=== PATIENT | female | born 1940 | race Caucasian/White ===

== ENCOUNTER 2020-06-07 10:36 | Day surgery (SDC) | payer OTHER ==
[~2020-06-07] VITALS: Ht 154.9 cm; Wt 79.0 kg
[~2020-06-07 10:36] MED LIST: ACET325 PO; AMLO10 PO; ANAS1 PO; ASPI81CH PO; ASPI81EC PO; AVALIDE; Anastrozole1 GM PO; BYSTOLIC; CALCIUM/VIT D PO; FAMC500 PO; FLUSAL2505; FLUT.05NI; HUMALOG; INSLI100I SC; INSULANI; INSULANI SC; INSULANPEN SC; LOSA25 PO; METF500C PO; MONT10T; MYCARDIS; Norvasc PO; OMEP20ER PO; OXYACE5T PO; PRED20 PO; SERT25 PO; SIMV40 PO; SPIRIVA; STOOL SOFTENER PO; STOOL SOFTNER; TAMO20 PO; TELM20 PO; TELM80 PO; TRAM50 PO; TYLENOL PO; ZOLOFT; [UNRECOGNIZED DRUG - OTHER]; [UNRECOGNIZED DRUG - OTHER]; [UNRECOGNIZED DRUG - OTHER] PO
--- NOTE | 2020-06-07 11:40 | NUR ---
06/07/[address] notified of htn, he comes to see the pt and no orders given.
--- NOTE | 2020-06-07 13:54 | NUR ---
06/07/20 Aiden4 Jony Swenson PT RESTING ON RECLINER. PT DENIES ANY PAIN AT THIS TIME. PT TOLERATING SNACKS. BLOOD SUGAR RE-CHECKED AFTER SURGERY PER DR. LAWSON ORDER. BLOOD SUGAR REPORTED TO DR. LAWSON AND NO FURTHER ORDERS GIVEN BY TO TREAT BLOOD SUGAR. DR. CAO WITH PT TO HAVE SNACKS DURING RECOVERY. WILL CONTINUE TO MONITOR. PT.
== END 2020-06-07 14:48 | disposition home or self-care (01) ==
LOC: ORSCSDS 10:36
PROVIDERS: Surgery
PROC: 0HBT0ZZ Excision of Right Breast, Open Approach (ICD-10-PCS; principal; 2020-06-07 12:00)
DX: C50.911 Malignant neoplasm of unspecified site of right female breast (principal); I10 Essential (primary) hypertension; J44.9 Chronic obstructive pulmonary disease, unspecified; Z87.891 Personal history of nicotine dependence; G47.33 Obstructive sleep apnea (adult) (pediatric); E11.9 Type 2 diabetes mellitus without complications; E83.119 Hemochromatosis, unspecified; K21.9 Gastro-esophageal reflux disease without esophagitis; Z79.4 Long term (current) use of insulin; Z79.899 Other long term (current) drug therapy
CPT/HCPCS: 82947; 88307; 88341; 88342; J0690; J1100; J2250; J2370; J2405; J2704; J3010; J7120

== ENCOUNTER 2020-06-26 08:36 | Day surgery (SDC) | payer OTHER ==
[~2020-06-26] VITALS: Ht 152.4 cm; Wt 77.1 kg
[2020-06-26] MEDS ORDERED: BASAGLAR K100 UNIT/1 SC (09:20)
[2020-06-26] MEDS ORDERED: VICTOZA 2-0.6 MG/0.1 SC (09:20)
--- NOTE | 2020-06-26 10:00 | NUR ---
06/26/20 1000 MELECIO MUNIZ PT TO PRE OP. PT'S BP ELEVATED 206/91, 220/[address] MONCADA - ANESTHESIA CONSULTED. ONE TIME ORDER FOR HYDRALAZINE 10MG IV RECEIVED AND GIVEN. REPEAT BP RECORDED OF 190/79, 191/79 WILL CONT TO MONITOR PT. PT REPORTS IT BECOMES ELEVATED WHEN ANXIOUS.
--- NOTE | 2020-06-26 12:45 | NUR ---
06/26/20 1245 Reed Gordon BILATERAL RAQUEL DRAINS PLACED AND SECURED INTO BREAST BINDER. BOTH DRAINS HOLDING SUCTION AND DRAINING PROPERLY WHEN LEAVING OR. DR CALDWELL AWARE.
--- NOTE | 2020-06-26 14:13 | NUR ---
06/26/20 1413 Jony Swenson PT RESTING ON RECLINER, VS TAYOL. PT SMILING. WILL CONTINUE TO MONITOR.
== END 2020-06-26 16:20 | disposition home or self-care (01) ==
LOC: ORSCSDS 08:36
PROVIDERS: Surgery
PROC: 0HTV0ZZ Resection of Bilateral Breast, Open Approach (ICD-10-PCS; principal; 2020-06-26 10:00)
DX: C50.911 Malignant neoplasm of unspecified site of right female breast (principal); Z40.01 Encounter for prophylactic removal of breast; E11.9 Type 2 diabetes mellitus without complications; I10 Essential (primary) hypertension; J44.9 Chronic obstructive pulmonary disease, unspecified; G47.33 Obstructive sleep apnea (adult) (pediatric); Z79.4 Long term (current) use of insulin; Z87.891 Personal history of nicotine dependence; Z79.82 Long term (current) use of aspirin; Z79.899 Other long term (current) drug therapy
CPT/HCPCS: 82947; 88307; 88311; A9270; J0330; J0360; J0690; J2250; J2370; J2405; J2704; J3010

== ENCOUNTER 2021-02-21 14:35 | Observation (INO) | payer OTHER ==
[~2021-02-21] VITALS: Ht 152.4 cm; Wt 80.7 kg
[~2021-02-21 14:35] MED LIST changes: +ANASTROZOLE1 M6 PO; -Anastrozole1 GM PO; +BASAGLAR K100 UNIT/1 SC; +VICTOZA 2-0.6 MG/0.1 SC
[2021-02-21 15:27] LABS: BASOPHILS PERCENT AUTO 1 % (0-2); EOSINOPHILS ABSOLUTE AUTO 0.29 K/mm3 (0.00-0.68); EOSINOPHILS PERCENT AUTO 4 % (0-6); Hematocrit 26.4 % (33.0-51.0); Hemoglobin 8.4 g/dL (11.5-16.0); IMMATURE GRAN ABSOLUTE AUTO 0.03 K/mm3 (0.00-0.10); IMMATURE GRAN PERCENT AUTO 0 % (0-1); LYMPHOCYTES ABSOLUTE AUTO 1.37 K/mm3 (0.84-5.20); LYMPHOCYTES PERCENT AUTO 17 % (21-46); MONOCYTES ABSOLUTE AUTO 0.68 K/mm3 (0.16-1.47); MONOCYTES PERCENT AUTO 8 % (4-13); Mean Corpuscular HGB 29.1 pg (26.0-34.0); Mean Corpuscular HGB Conc 31.8 g/dL (31.5-36.5); Mean Corpuscular Volume 91 fL (80-100); Mean Platelet Volume 10.5 fL (9.1-12.4); NEUTROPHILS ABSOLUTE AUTO 5.64 K/mm3 (1.96-9.15); NEUTROPHILS PERCENT AUTO 70 % (41-73); Platelet Count 157 K/mm3 (150-400); RDW Coefficient Variation 14.2 % (11.7-14.2); RDW Standard Deviation 48.1 fL (35.1-46.3); Red Blood Cell Count 2.89 M/mm3 (3.80-5.20); White Blood Cell Count 8.11 K/mm3 (4.00-11.30)
[2021-02-21 15:43] LABS: Albumin, Blood 3.1 g/dL (3.4-5.0); Albumin/Globulin Ratio 0.8 (0.8-1.8); Bilirubin, Total 0.5 mg/dL (0.1-1.0); Bun/Creatinine Ratio 34.8 (12.0-20.0); Calcium, Blood 9.5 mg/dL (8.5-10.1); Creatinine, Blood 1.12 mg/dL (0.40-1.00); Globulin, Blood 3.7 g/dL (2.2-4.0); Total Protein, Blood 6.8 g/dL (6.4-8.2)
[2021-02-21 17:21] LABS: Source, Urine Clean Catch
[2021-02-21 17:37] LABS: Appearance, Urine Clear (Clear); Bilirubin, Urine Neg (Neg); Blood, Urine Neg (Neg); Color, Urine Yellow (P-Yellow); Glucose Qualitative, Urine 4+ (Neg); Ketones, Urine Neg (Neg); Leukocyte Esterase, Urine 1+ (Neg); Nitrite, Urine Neg (Neg); Protein, Urine 1+ (Neg); Urobilinogen, Urine NORM (Normal)
[2021-02-21 17:53] LABS: Bacteria Few /hpf; Red Blood Cells, Urine 0-2 /hpf (0-2); Squamous Epithelial Cells Few /hpf (Few)
[2021-02-21] MEDS ORDERED: OXYC10TA19 PO (19:29)
[2021-02-21] MEDS ORDERED: METFORMIN HCL500 M3 PO (19:29)
[2021-02-22 00:46] LABS: SARS-Cov-2 (COVID-19) PCR, MMC NEGATIVE (NEGATIVE)
--- NOTE | 2021-02-22 04:50 | NUR ---
SUMMARY PT ARRIVED TO FLOOR IN NO DISTRESS. PT CHEST WOUND DRESSED AND KEPT C/D/I. PT HAS NOTED DECUB ON COCCYX AND MEPILEX PLACED. PT CURRENTLY BEDREST. PT HAS BEEN SLEEPING AND BREATHING EASY. PT GIVEN SEMGLEE ORDERED. CALL LIGHT IN REACH AND BED ALARM ON.
[2021-02-22 04:53] LABS: Hematocrit 22.9 % (33.0-51.0); Hemoglobin 7.4 g/dL (11.5-16.0); Mean Corpuscular HGB 29.5 pg (26.0-34.0); Mean Corpuscular HGB Conc 32.3 g/dL (31.5-36.5); Mean Corpuscular Volume 91 fL (80-100); Mean Platelet Volume 10.4 fL (9.1-12.4); Platelet Count 127 K/mm3 (150-400); RDW Coefficient Variation 14.2 % (11.7-14.2); RDW Standard Deviation 46.9 fL (35.1-46.3); Red Blood Cell Count 2.51 M/mm3 (3.80-5.20); White Blood Cell Count 7.74 K/mm3 (4.00-11.30)
[2021-02-22 05:02] LABS: Bun/Creatinine Ratio 31.4 (12.0-20.0); Calcium, Blood 8.9 mg/dL (8.5-10.1); Creatinine, Blood 0.96 mg/dL (0.40-1.00); Potassium, Blood 4.6 mmol/L (3.5-5.5)
[2021-02-22] MEDS ORDERED: Acetaminophen650 M1 PO (07:08)
--- NOTE | 2021-02-22 17:30 | NUR ---
Met with pt to review her needs. Pt expressing moderate to severe pain in chest and back ribs. She is holding bed rails and splinting she cannot tolerate a pillow. she denies nausea or constipation, No headaches, appetite is moderate. States her ADHD sympmtom are worsing and andrei is having memeory issues. Asked her about sleep, she states she has not had a true nights sleep in probaly three weeks she just doses and wakes up in pain. Pt had some questions about treatment options. She knows her children want her to fight and live. We discussed making a plan She is not sure she want treatment. Discussed trying treatment and see if it helps her symptoms. We also discussed hospice. Reviewed with her that the doctors can treat her symptoms but if it becomes to extrodianry may be time for hopice. We discussed her polst and wishes. She does not want cpr or intubation. advised her to talk to her children first she is to distraught to make a big decision right now. Review her pain and trialing iv pain meds with nursing and her need for reat and sleep. called her daughter and reviewed her symptoma and our discussion. Daughter feels any life support at this point in her life would not be good. she agrees with DNR will discuss with brother. Daughter coming to town tomorrow will do polst and set up plan. will continue to montior pain, constipation. sleep and toleracne of medication for worsening delirium.
--- NOTE | 2021-02-22 19:08 | NUR ---
PT AO X 3 WITH SOME FORGETFULNESS AT TIME.PT UP WITH 1 ASSIST WITH THE WALKER,PT HAVE NECROTIZING LARGE WOUND IN THE MIDDLE OF HER CHEST.PT HAD BLE MASECTOMY.DRESSING CHANGED TODAY AND PT HAVE A DECUB STAGE 2 COCCYX ULCER COVERED WITH MEPILEX.PT ON TELE SINUS 89.PT C/O OF PAIN MEDICATED PER EMAR,PT ON CONTINUOS PULSE OXYMETRY.PT DENIES N/V,SOB.PT HAVE BLE LEG REDNESS DICOLORATION.PT IN BED, BED IN LOW POSITION CALL LIGHT IN REACH WILL CONTINUE TO MONITOR.
--- NOTE | 2021-02-23 05:02 | NUR ---
BOILER TENDER SUMMARY PATIENT HAD A FAIR SHIFT. HER WOUND DRESSING CHANGED. SHE HAD HER PAIN MEDICATION PER ORDER. NIL FRESH COMPLAINT LODGED. WILL CONTINUE TO MONITOR THE PATIENT.
--- NOTE | 2021-02-23 16:32 | NUR ---
Pt alert but forgetfull and still a little anxious. better movement of nech and arms good pain control. discussed with pt and daughter plan of care to contact oncology on thursday. review with pt her narcotic and risk for constipation. Pt states she has been having issue with constipation. We also reviewed her wishes for level of acre and competed a polst. pt want full treatment but no extrodiany measures no cpr no ventilation or dialysis. she will hear what oncology offers befor accepting cancer care but is incline to accept treatment. Encouraged hope, pt very worriend about the future for both her and her with worsening dementia. will [facility] to [facility] and send chaplian for support.
--- NOTE | 2021-02-23 16:49 | NUR ---
PT ALERT ORIENTED WITH SOME FORGETFULNESS EPISODES.PT ASSESSMENT REMAINS UNCHANGED,PT HAS NO ACUTE CHANGES T/O THE SHIFT.PT STATUS CHANGE FROM FULL CODE TO DNR.PT FAMILY [facility] GAVE UPDATE.PT C/O OF PAIN MEDICATED PER EMAR.PT REMAINS ON TELE SINUS 87 PER GRADUATE RN.PT ALSO HAVE CONTINUOS PULS OXYMETRY MONITORING,PT IN BED,BED ALARM ON,BED IN LOW POSITION CALL LIGHT IN REACH WILL CONTINUE TO MONITORING.
--- NOTE | 2021-02-24 03:26 | NUR ---
MALT HOUSE OPERATOR SUMMARY PATIENT HAD A FAIR SHIFT. SHE IS HAVING FREQUENCY AND URGENCY URINATION. SHE HAD HER DRESSING CLEANED AND CHANGED, THE WOUND HAS BLOODY SECRETIONS. SHE HAD HER MEDICATION FOR PAIN. WILL CONTINUE TO MONITOR THE PATIENT.
[2021-02-24 05:04] LABS: BASOPHILS ABSOLUTE AUTO 0.09 K/mm3 (0.00-0.23); BASOPHILS PERCENT AUTO 1 % (0-2); EOSINOPHILS ABSOLUTE AUTO 0.43 K/mm3 (0.00-0.68); EOSINOPHILS PERCENT AUTO 6 % (0-6); Hematocrit 24.2 % (33.0-51.0); Hemoglobin 7.5 g/dL (11.5-16.0); IMMATURE GRAN ABSOLUTE AUTO 0.05 K/mm3 (0.00-0.10); IMMATURE GRAN PERCENT AUTO 1 % (0-1); LYMPHOCYTES ABSOLUTE AUTO 1.44 K/mm3 (0.84-5.20); LYMPHOCYTES PERCENT AUTO 20 % (21-46); MONOCYTES ABSOLUTE AUTO 0.79 K/mm3 (0.16-1.47); MONOCYTES PERCENT AUTO 11 % (4-13); Mean Corpuscular HGB 28.8 pg (26.0-34.0); Mean Corpuscular Volume 93 fL (80-100); Mean Platelet Volume 10.4 fL (9.1-12.4); NEUTROPHILS ABSOLUTE AUTO 4.38 K/mm3 (1.96-9.15); NEUTROPHILS PERCENT AUTO 61 % (41-73); Platelet Count 131 K/mm3 (150-400); RDW Coefficient Variation 14.6 % (11.7-14.2); RDW Standard Deviation 50.1 fL (35.1-46.3); White Blood Cell Count 7.18 K/mm3 (4.00-11.30)
[2021-02-24 05:36] LABS: Albumin, Blood 2.5 g/dL (3.4-5.0); Albumin/Globulin Ratio 0.7 (0.8-1.8); Bilirubin, Total 0.4 mg/dL (0.1-1.0); Bun/Creatinine Ratio 20.5 (12.0-20.0); Calcium, Blood 9.2 mg/dL (8.5-10.1); Creatinine, Blood 1.12 mg/dL (0.40-1.00); Globulin, Blood 3.4 g/dL (2.2-4.0); Potassium, Blood 4.8 mmol/L (3.5-5.5); Total Protein, Blood 5.9 g/dL (6.4-8.2)
--- NOTE | 2021-02-24 11:55 | NUR ---
pt up in chair looking improved. thursday will follow up on oncology plan.
--- NOTE | 2021-02-24 18:28 | NUR ---
PT HAD A VERY NICE TODAY,HER SON COME TO VISIT,PT UP IN THE CHAIR TALKING TO SON,PT PAIN UNDER CONTROL SEE EMAR,PT HAS NO ACUTE EVENTS T/O SHIFT,PT IS VERY PLEASANT,PT BACK IN BED JUST FINISHING DINNER,BED IN LOW POSITION,CALL LIGHT IN REACH WILL CONTINUE TO MONITOR.
--- NOTE | 2021-02-25 04:08 | NUR ---
REAL ESTATE PROFESSOR SUMMARY PATIENT HAD A CALM SHIFT. SHE HAD HER PAIN MED SEE EMAR. HER VITALS ARE STABLE. WILL CONTINUE TO MONITOR THE PATIENT.
[2021-02-25 08:36] LABS: BASOPHILS ABSOLUTE AUTO 0.06 K/mm3 (0.00-0.23); BASOPHILS PERCENT AUTO 1 % (0-2); EOSINOPHILS PERCENT AUTO 5 % (0-6); Hematocrit 26.5 % (33.0-51.0); Hemoglobin 8.3 g/dL (11.5-16.0); IMMATURE GRAN ABSOLUTE AUTO 0.06 K/mm3 (0.00-0.10); IMMATURE GRAN PERCENT AUTO 1 % (0-1); LYMPHOCYTES ABSOLUTE AUTO 1.43 K/mm3 (0.84-5.20); LYMPHOCYTES PERCENT AUTO 17 % (21-46); MONOCYTES ABSOLUTE AUTO 0.85 K/mm3 (0.16-1.47); MONOCYTES PERCENT AUTO 10 % (4-13); Mean Corpuscular HGB 29.4 pg (26.0-34.0); Mean Corpuscular HGB Conc 31.3 g/dL (31.5-36.5); Mean Corpuscular Volume 94 fL (80-100); NEUTROPHILS ABSOLUTE AUTO 5.72 K/mm3 (1.96-9.15); NEUTROPHILS PERCENT AUTO 67 % (41-73); Platelet Count 147 K/mm3 (150-400); RDW Coefficient Variation 14.7 % (11.7-14.2); RDW Standard Deviation 50.5 fL (35.1-46.3); Red Blood Cell Count 2.82 M/mm3 (3.80-5.20); White Blood Cell Count 8.52 K/mm3 (4.00-11.30)
[2021-02-25] MEDS ORDERED: BISA10S PR (13:35)
[2021-02-25] MEDS ORDERED: CEPH500 PO (13:36)
[2021-02-25] MEDS ORDERED: DULCOLAX400 MG/5 M PO (13:37)
[2021-02-25] MEDS ORDERED: SENN187 PO (13:38)
[2021-02-25] MEDS ORDERED: ONDA4ODT MM (13:38)
[2021-02-25] MEDS ORDERED: VISBIOME 112.51 EACH PO (13:39)
[2021-02-25] MEDS ORDERED: ASCO500 PO (13:42)
[2021-02-25] MEDS ORDERED: FERSU300 PO (13:43)
--- NOTE | 2021-02-25 14:59 | NUR ---
DISCHARGE PATIENT TRANSPORTED VIA WHEELCHAIR TO PRIVATE VEHICLE. DISCHARGE INSTRUCTIONS EXPLAINED TO PATIENT AND SON. BOTH STATED UNDERSTANDING. PACKET SENT WITH PATIENT. IV REMOVED WITHOUT DIFFICULTY. TELE REMOVED WITHOUT DIFFICULTY. MEDICATIONS SENT TO PERFERRED PHARMACY. FOLLOW UP WITH PCP SCHEDULED. DRESSING CHANGED BEFORE DISCHARGE.
== END 2021-02-25 14:55 | disposition home health service (06) ==
LOC: ER 14:35 → MEDS 14:36 → ENPENDDIS 02-24 12:38 → MEDS 02-25 14:55
PROVIDERS: Emergency Medicine; Family Medicine; Physician Assistant; ADMIT Internal Medicine
DX: D50.0 Iron deficiency anemia secondary to blood loss (chronic) (principal); L76.22 Postprocedural hemorrhage of skin and subcutaneous tissue following other procedure; C50.912 Malignant neoplasm of unspecified site of left female breast; L03.313 Cellulitis of chest wall; E87.1 Hypo-osmolality and hyponatremia; E86.0 Dehydration; N17.9 Acute kidney failure, unspecified; E11.22 Type 2 diabetes mellitus with diabetic chronic kidney disease; I12.9 Hypertensive chronic kidney disease with stage 1 through stage 4 chronic kidney disease, or unspecified chronic kidney disease; N18.30 Chronic kidney disease, stage 3 unspecified; J44.9 Chronic obstructive pulmonary disease, unspecified; K21.9 Gastro-esophageal reflux disease without esophagitis; Y83.8 Other surgical procedures as the cause of abnormal reaction of the patient, or of later complication, without mention of misadventure at the time of the procedure; Z79.82 Long term (current) use of aspirin; Z79.4 Long term (current) use of insulin; Z88.8 Allergy status to other drugs, medicaments and biological substances; Z88.1 Allergy status to other antibiotic agents; Z91.013 Allergy to seafood; Z86.73 Personal history of transient ischemic attack (TIA), and cerebral infarction without residual deficits; Z90.13 Acquired absence of bilateral breasts and nipples; Z20.822 Contact with and (suspected) exposure to COVID-19
CPT/HCPCS: 36415; 70450; 71260; 80048; 80053; 81001; 82947; 83690; 85025; 85027; 87086; 94762; 96365-59; 97110; 97116; 97162; 97166; 97530; 97535; 99285-25; A9270; J0690; J1815; J2270; J2405; J7030; J7120; Q9967; U0004